=== PATIENT | female | born 2000 ===

== ENCOUNTER 2024-09-05 21:02 | Emergency (ER) | payer MEDICAID ==
[~2024-09-05] VITALS: Ht 165.1 cm; Wt 72.0 kg
[2024-09-05 21:07] VITALS: BP 106/66; PULSE 100; RESP 17; TEMP 97.9; O2SAT 98
[2024-09-05] MEDS: TETanus/Pertussis (Acell)/Diphther VAC/PF (Tdap-Adult) 0.5ml syringe IMVAC ONE (22:24)
== END 2024-09-05 22:37 ==
LOC: ER 21:03
DX: S61.211A Laceration without foreign body of left index finger without damage to nail, initial encounter (principal); Z88.0 Allergy status to penicillin; X58.XXXA Exposure to other specified factors, initial encounter; Y93.89 Activity, other specified; Y92.89 Other specified places as the place of occurrence of the external cause; Y99.8 Other external cause status
CPT/HCPCS: 12002; 90471; 90715; 99283